=== PATIENT | female | born 2000 | race Caucasian/White ===

== ENCOUNTER 2023-02-09 03:33 | Emergency (ER) | payer BC, SELFPAY ==
[2023-02-09 03:40] VITALS: BP 148/99; PULSE 82; RESP 16; TEMP 37; O2SAT 99
--- NOTE | 2023-02-09 03:59 | ED.GENADULT ---
HPI - General Adult General Chief complaint: Nausea/Vomiting Stated complaint: Food Poising Time Seen by Provider: 02/09/23 03:54 History of Present Illness HPI narrative: pt began vomiting around midnight. thinks it may be from eating raw cookie dough. pt also reports headaches. pt also reports stomach cramps, lower abd, left an 22-year-old woman presenting to the emergency department with concern dehydration. Started to have some cramping abdominal pain about 4 hours prior to this interview followed closely by nausea and vomiting. Has vomited maybe 5 times. No hematemesis. She is worried she may be dehydrated. Still uncomfortable. No fever. No rashes. Worried she might have eaten some bad cookie dough though in later questioning sounds like this was 36 hours prior. No dysuria frequency urgency. Related Data Home Medications Medication Instructions Recorded Confirmed sertraline 100 mg tablet (Zoloft) 200 mg PO DAILY 02/09/23 02/09/23 Allergies Allergy/AdvReac Type Severity Reaction Status Date / Time No Known Drug Allergies Allergy Verified 02/09/23 03:40 Review of Systems Status of ROS: Reports: 6 or more systems reviewed and unremarkable except as noted in History and below Exam Narrative: Exam Narrative: Pleasant. Breathing easily. Easily conversant. Accompanied by supportive significant other. Skin is warm and dry and well-perfused. No rashes She has no edema. Lungs appear to be clear. Heart in a regular rate and rhythm. Oropharynx sounds little sticky. Winces in diffuse tenderness to palpation over her abdomen. No peritoneal signs. Normoactive bowel sounds. Const: Vital Signs, click to edit/add: Vital Signs - 24 hr 02/09/23 03:40 Temperature 98.6 F Pulse Rate [Left P ulse Oximeter] 82 Respiratory Rate 16 Blood Pressure [Ri ght Upper Arm] 148/99 H Pulse Oximetry 99 Oxygen Delivery Me thod Room Air Documenting provider has reviewed patient's vital signs: yes Course Vital Signs Vital signs: Initial Vital Signs Temperature 98.6 F 02/09/23 03:40 Temperature Source Temporal Artery Scan 02/09/23 03:40 Pulse Rate 82 02/09/23 03:40 Pulse Rhythm Regular 02/09/23 03:40 Respiratory Rate 16 02/09/23 03:40 Blood Pressure 148/99 H 02/09/23 03:40 Blood Pressure Mean 115 H 02/09/23 03:40 Blood Pressure Position Sitting 02/09/23 03:40 Pulse Oximetry 99 02/09/23 03:40 Oxygen Delivery Method Room Air 02/09/23 03:40 Vital Signs Temperature 98.6 F 02/09/23 03:40 Pulse Rate 82 02/09/23 03:40 Respiratory Rate 16 02/09/23 03:40 Blood Pressure 148/99 H 02/09/23 03:40 Pulse Oximetry 99 02/09/23 03:40 Oxygen Delivery Method Room Air 02/09/23 03:40 Temperature 98.6 F 02/09/23 03:40 Pulse Rate 80 02/09/23 05:09 Respiratory Rate 16 02/09/23 05:09 Blood Pressure 136/64 02/09/23 05:09 Pulse Oximetry 99 02/09/23 05:09 Oxygen Delivery Method Room Air 02/09/23 05:09 Medical Decision Making MDM Narrative Medical decision making narrative: Limited duration in generally healthy person with overall reassuring exam I do not think we need to do any lab evaluation pending improvement here with initial treatment in the emergency department. Appears to be a gastritis/gastroenteritis of unclear etiology at this time. IV fluids were established. Given normal saline, ketorolac, Zofran. On reassessment is overall improved and felt she could return home. See patient discharge plan Discharge Plan Discharge Clinical Impression: Gastritis, Abdominal pain Patient Disposition: Home w/ Parent or Adult Condition: Improved Additional Instructions: Focus on hydration. Slow advance of diet over the next 24-36 hours. Diluted juices, soup broths, rice, crackers, toast. Return for intractable vomiting or diarrhea, marked increase in persistent abdominal pain, associated fever. Zofran from [facility]. Prescriptions: No Action sertraline [Zoloft] 100 mg tablet 200 mg PO DAILY Follow Up/Referrals: Marifer Myers MD [Primary Care Provider] - Stand Alone Forms: [employer] Info Instructions
[2023-02-09] MEDS: ONDANSETRON 2 MG/ML inj 4 MG IVP (04:14)
[2023-02-09] MEDS: 0.9 % SODIUM CHLORIDE 1000 ml 1,000 ML IV (04:14)
[2023-02-09] MEDS: KETOROLAC 30 MG/ML inj IVP (04:14)
[2023-02-09 05:09] VITALS: BP 136/64; PULSE 80; RESP 16; O2SAT 99
== END 2023-02-09 05:11 | disposition home or self-care (01) ==
PROVIDERS: Emergency Provider Family Medicine; PCP Pediatrics
DX: K29.70 Gastritis, unspecified, without bleeding (principal); R10.9 Unspecified abdominal pain
CPT/HCPCS: 81001; 81025; 96374; 96375; 99284; J1885; J2405; J7030

== ENCOUNTER 2024-11-09 14:58 | Outpatient (CLI) | payer BC, SELFPAY ==
[2024-11-09] VITALS (11 sets, daily range): BP systolic 117–131; BP diastolic 60–83; PULSE 74–100; RESP 18; TEMP 36.9; O2SAT 98
[2024-11-09 15:40] LABS: Alanine Aminotransferase* 26 U/L (4-35); Aspartate Amino Transferase* 27 U/L (12-35); Creatinine* 0.6 mg/dL (0.5-1.5); Estimated Glomerular Filt Rate 129 ml/min; Hematocrit 35.5 % (33.0-51.0); Hemoglobin* 11.5 gm/dL (12.0-16.0); Mean Corpuscular HGB Conc 32 gm/dL (32-36); Mean Corpuscular Hemoglobin 27 pg (26-34); Mean Corpuscular Volume 84 fL (80-100); Platelet Count* 268 K/uL (140-440); Red Blood Count 4.23 m/uL (4.00-5.20); White Blood Count* 10.71 K/uL (4.50-11.00)
[2024-11-09 15:43] LABS: Slide Review Reflex No
[2024-11-09 15:59] LABS: Creatinine Urine 109.9 mg/dL; Protein Creatinine Ratio Urine 0.19 (0-0.19); Total Protein Urine 21 mg/dL
--- NOTE | 2024-11-09 18:36 | PC.OBNST ---
NST Note NST Note Start: 11/09/24 15:00 Freq: ONCE Status: Active Protocol: Document 11/09/24 15:00 ROBINSON (Rec: 11/09/24 18:36 ROBINSON [id number]) NST Note 2 Para (# of births) 0 EDC 11/20/24 Gestational Age In 38 Weeks & 3 Days Weeks & Days Patient Presented Other with Complaint(s) of Other Complaints Elevated BP in clinic 148/87 with 15 minute recheck of 136/72 Reactive Yes Appropriate for Yes Gestational Age RN Jagdish Martínez, RN Date 11/09/24 Reactive Yes Appropriate for Yes Gestational Age KARSTEN Baumann, RN Date 11/09/24 OB NST charge Yes Complete NST Note Yes via Write Note The provider's electronic signature indicates the NST is reactive/appropriate for gestational age. *Note to provider: If an addendum is required, open the patient's chart and click on the note under the Nurse/Allied Health tab.
== END 2024-11-09 18:15 | disposition home or self-care (01) ==
LOC: OB OUT 14:58 → OB 14:59
PROVIDERS: PCP Pediatrics; Visit Provider Family Medicine
DX: O26.893 Other specified pregnancy related conditions, third trimester (principal); R03.0 Elevated blood-pressure reading, without diagnosis of hypertension; Z3A.38 38 weeks gestation of pregnancy
CPT/HCPCS: 36415; 59025; 82565; 82570; 84156; 84450; 84460; 84520; 85027; G0463

== ENCOUNTER 2024-11-19 15:54 | Inpatient (IN) | payer BC, SELFPAY ==
[2024-11-19 16:15] VITALS: BMI 25.4
[2024-11-19] MEDS: miSOPROStoL 25 MCG/0.25 TABLET PO ×4 (16:45→23:47)
[2024-11-19 16:49] VITALS: BP 125/77; PULSE 89; PULSE 91; RESP 16; TEMP 36.9; O2SAT 98
[2024-11-19 17:25] LABS: Basophils Absolute Auto 0.04 K/uL (0.00-0.30); Basophils Percent Auto 0.4 % (0.0-3.0); Eosinophils Absolute Auto 0.08 K/uL (0.00-0.50); Eosinophils Percent Auto 0.8 % (0.0-7.0); Hematocrit 33.8 % (33.0-51.0); Immature Granulocytes Abs Auto 0.18 K/uL (0.00-0.30); Immature Granulocytes Pct Auto 1.7 %; Lymphocytes Percent Auto 19.4 % (20-44); Mean Corpuscular HGB Conc 33 gm/dL (32-36); Mean Corpuscular Hemoglobin 27 pg (26-34); Mean Corpuscular Volume 84 fL (80-100); Neutrophils Absolute Auto 7.21 K/uL (1.7-7.0); Neutrophils Percent Auto 68.7 % (42.0-72.0); Platelet Count* 246 K/uL (140-440); RDW Coefficient of Variation % 14.8 % (11.5-15.5); Red Blood Count 4.02 m/uL (4.00-5.20); White Blood Count* 10.49 K/uL (4.50-11.00)
[2024-11-19 17:39] LABS: Slide Review Reflex No
[2024-11-19 19:18] VITALS: BP 138/78; PULSE 80; RESP 16; TEMP 36.6
--- NOTE | 2024-11-19 20:38 | P.OBHP_ITS ---
OB - H&P: HPI Labor/Induction History of Present Illness Date Seen: 11/19/24 Chief Complaint: The patient is a 24 year old 2 para 0010 at 39+6 weeks gestation by LMP c/w 6 wk US, who presents for elective IOL. Chief complaint: Maternity : 2 Para: 0 Indications for induction: other (elective) Narrative: Zee Diallo is a 24 year old female 2 para 0010 at 39+6 weeks gestation by LMP c/w 6 wk US, who presents for elective IOL. has been uncomplicated. Patient has history of exercise induced asthma and adjustment d/o, neither of which has been problematic this . It was noted on admission that her [facility] chart notes a prior MRSA skin infection at age 14. Patient and mother recall the infection; she had lesions on her finger and back. They are unsure if she had any testing for MRSA subsequently. She has had no subsequent issues with pustular skin infections or other severe infections of any kind. [facility] chart does not show any cultures or other documentation to confirm this diagnosis. Patient is feeling well. Occasional contractions on admission. Now salome regularly on the monitor after 2 doses of cytotec. Reporting mild cramping. History of Present Dating criteria: based on LMP care: good care Ultrasounds: normal 1st trimester US and normal mid trimester US Abnormal ultrasound findings: 6 wk dating US IMPRESSION: 1. Single living intrauterine gestation at 6 weeks, 6 days based on ultrasound measurements. This compares to a clinical age based on LMP of 7 weeks and 3 days. 2. Small adjacent subchorionic bleed measuring 1.3 x 0.6 x 0.4 cm. 3. Small amount of pelvic free fluid. 4. 3.2 cm right ovarian cyst and adjacent collapsing small cyst. 20 wk survey FINDINGS: LMP: 02/14/2024 Gestational age by LMP: 20 weeks 0 days MELISSA by LMP: 11/20/2024 Gestational age by first ultrasound: 19 weeks 3 days MELISSA by first ultrasound: 11/24/2024 Gestational age by today's ultrasound: 19 weeks 6 days MELISSA by today's ultrasound: 11/21/2024 Heart Rate: 144 beats per minute SDP: 3.8 cm Cervix Length: 3 cm Estimated Weight: 310 grams Percentile: 31% Placenta: Fundal Position: Vertex. BIOMETRY BPD: 4.64 cm, 20 weeks 1 day, 51% HC: 17.04 cm, 19 weeks 5 days, 26% AC: 14.36 cm, 19 weeks 5 days, 34% FL: 3.15 cm, 19 weeks 6 days, 34% IMPRESSION: Measurements are consistent with dates. Good interval growth since the prior exam. Normal anatomy survey Labs Blood type: B (+) positive Rubella: immune RPR/VDLR: nonreactive GBS status: negative HBsAG: negative Narrative: Hep C neg GC chlam neg GCT 104 Review of Systems Status of ROS: Reports: 10 or more systems reviewed and unremarkable except as noted in History and below Meds Home Medications and Allergies Home Medications ?Medication ?Instructions ?Recorded ?Confirmed ?Type vit no.95-ferrous 1 tab PO DAILY 11/09/2407/15 History fumarate 28 mg-folic acid 800 mcg tablet () Allergies Allergy/AdvReac Type Severity Reaction Status Date / Time No Known Drug Allergies Allergy Verified 11/19/24 16:26 OB - H&P: Exam Physical Exam: Vital signs: Temp Pulse Resp BP Pulse Ox 97.8 F 80 16 138/78 98 11/19/24 19:18 11/19/24 19:18 11/19/24 19:18 11/19/24 19:18 11/19/24 16:49 Narrative: General appearance: Well-appearing adult female. Alert, oriented and sachi ropriate. Sitting up in hospital bed. HEENT: EOMI, no conjunctival injection or discharge. MMM. Neck: Supple. CV: RRR, no rubs, murmurs or extra heart sounds. Pulm: CTAB, no wheezes, rales or rhonchi. Abdomen: Gravid MSK: Moving all extremities. Ext: Warm and well-perfused. No LE edema. Skin: No rashes appreciated over exposed skin. Neuro: Grossly normal strength and sensation. No focal deficits. Psych: Normal affect. Detailed Labor and Delivery Exam: Dilation (cm): 1 Effacement (%): 50 Contraction frequency (min): 2 Fetus (Single): Station: -3 Amniotic Membrane Status: intact Heart Rate Baseline: 135 Monitor Accelerations: Present Monitor Decelerations: None Custodial Variability: Moderate (6-25) OB - Results Labs Labs: Short CBC 11/19/24 Range/Units 17:14 WBC 10.49 (4.50-11.00) K/uL Hgb 11.0 L (12.0-16.0) gm/dL Hct 33.8 (33.0-51.0) % Plt Count 246 (140-440) K/uL OB - Problem Based A/P Additional Plan (1) Term : Problem details: Elective IOL at 39+6 weeks. Status: Acute Plan - Oral cytotec per protocol for cervical ripening. Plan transition to IV pitocin pending labor progress - Given uncertain nature of MRSA history (no documented positive cultures in [facility] chart), and > 10 years ago with no clinical concerns, precautions not initiated - GBS negative - May have epidural upon request for pain management - status reassuring - Anticipate vaginal delivery
[2024-11-19 21:34] VITALS: BP 133/82; PULSE 80
[2024-11-19 23:45] VITALS: BP 124/75; PULSE 62; TEMP 36.8
[2024-11-20] VITALS (36 sets, daily range): BP systolic 109–147; BP diastolic 69–101; PULSE 64–115; RESP 16–18; TEMP 36.6–36.9; O2SAT 97–100
[2024-11-20] MEDS: hydrOXYzine pamoate 25 MG CAPSULE 100 MG PO (03:34)
[2024-11-20] MEDS: MORPHINE 10 MG/ML inj IM (03:37)
[2024-11-20] MEDS: OXYTOCIN 30 unit/500 ML in NS 30 UNIT/500 ML BAG 300 UNIT IVPB (05:30)
--- NOTE | 2024-11-20 06:13 | W.PM.OBVAGDE ---
OB Procedure Vag Delivery Mother Details Mother Details: The patient is a 24 year-old, 2, Para 0, admitted on 11/19/24 at 39+6 Days gestation for elective IOL. Cervix was 1.5/50/-3 on admission. She received po cytotec per protocol x 4 doses. At 0335 was checked and found to be 2 cm. Received morphine and vistaril for therapeutic rest. Subsequently contractions became more painful. She requested epidural, however was checked at 0501 and found to be 8/100/+1. At 0507 had progressed to complete. Began pushing involuntarily. Provider arrived ~0520. Delivered a vigorous male over an intact perineum at 0528. Infant was placed on the maternal chest. Cord was clamped and cut after 60 sec delay. APGARs 8 and 9. IM pit given. Placenta delivered spontaneously at 0534, complete and 3V. Second degree perineal laceration was repaired in the usual fashion. First degree right periurethral laceration was hemostatic and not repaired. QBL was 125 cc. Sponge and sharps counts were correct. Infant and mother are resting comfortably. Admission Date: 11/19/24 Additional Details Amniotic Membrane Status: SROM Amniotic Membrane Rupture Date: 11/20/24 Amniotic Membrane Rupture Time: 05:09 Amniotic Membrane Fluid Description: Clear Analgesia/Anesthesia Type: None Waterbirth: No Pitcoin: No Intrapartal Events: Labor Induction Induction Method: per misoprostol protocol Labor Onset: 03:35 Complete: 05:07 Heart: heart tones during second stage were category 2. Decelerations with pushing, returned to baseline between contractions. Delivery Details Delivery Date: 11/20/24 Delivery Time: 05:28 Route of delivery: Gender: Male Infant Viability: Alive; Heart Rate Present Position at Delivery: OA Delivery Details: Delivered via spontaneous vaginal delivery. was placed on maternal abdomen.? Cord was clamped and cut after a 30-60 second delay. Nose and mouth were bulb suctioned.? weight pending. 1 Minute Interval Total Score: 8 5 Minute Interval Total Score: 9 Additional Details Shoulder Dystocia: No Placenta Delivery Time: 05:34 Placental Delivery Description: Spontaneous Delivery repair: Vicryl Procedure Done: Global Blood Loss: 125 Laceration: Perineal - 2nd Degree Episiotomy Description: None Blood Loss Measurement Type: QBL Bakri Used: No Sponge/Need Count Correct: Yes Cord Vessel Description: 3 Vessels Event Summary Status: Mother and were stable after delivery. Disposition: floor
[2024-11-20 07:16] LABS: Hematocrit 32.7 % (33.0-51.0); Hemoglobin* 10.5 gm/dL (12.0-16.0); Mean Corpuscular HGB Conc 32 gm/dL (32-36); Mean Corpuscular Hemoglobin 27 pg (26-34); Mean Corpuscular Volume 85 fL (80-100); Platelet Count* 231 K/uL (140-440); Red Blood Count 3.87 m/uL (4.00-5.20); White Blood Count* 17.64 K/uL (4.50-11.00)
[2024-11-20] MEDS: LIDOCAINE 1 % PF 30 ML INJECTION (07:20)
[2024-11-20 07:22] LABS: Slide Review Reflex No
[2024-11-20] MEDS: IBUPROFEN 600 MG TABLET PO ×3 (07:25→21:10)
[2024-11-20] MEDS: DOCUSATE SODIUM 100 MG CAPSULE PO (07:26)
[2024-11-20 07:32] LABS: Alanine Aminotransferase* 34 U/L (4-35); Aspartate Amino Transferase* 37 U/L (12-35); Blood Urea Nitrogen* 12 mg/dL (5-24); Creatinine* 0.7 mg/dL (0.5-1.5); Est. Creatinine Clearance* 126.09; Estimated Glomerular Filt Rate 125 ml/min
[2024-11-20] MEDS: NIFEdipine ER 30 MG TAB PO (08:56)
[2024-11-20] MEDS: ACETAMINOPHEN 500 MG TABLET 1000 MG PO ×2 (11:24→17:53)
[2024-11-21] VITALS (7 sets, daily range): BP systolic 112–136; BP diastolic 75–84; PULSE 76–105; RESP 16–18; TEMP 36.4–36.9; O2SAT 92–98
[2024-11-21] MEDS: IBUPROFEN 600 MG TABLET PO ×2 (05:09→12:05)
[2024-11-21 06:23] LABS: Hemoglobin* 9.2 gm/dL (12.0-16.0)
--- NOTE | 2024-11-21 09:25 | PM.OBPNVD1 ---
OB - PN:Subj Subjective Time Seen by Provider: 09:15 Date Seen: 11/21/24 Interval history: pt seen in routine rounds. pt reports feeling well. Ambulating, voiding, tolerating orals. No headaches or vision changes. Lochia mild. No pain noted. Yesterday first 1-2 hours after delivery had several bp's in 140's/90's range. Nifedipine 30mg ER was started, first dose around 9am. BP's 112-133/75-85 since. Patient comments OB post-: no complaints status: [place] feeding status: exclusively OB - PN: Obj Exam Physical Exam: Vital signs: Temp Pulse Resp BP Pulse Ox O2 Del Method 98.5 F 84 18 127/81 98 Room Air 11/21/24 05:32 11/21/24 05:32 11/21/24 05:32 11/21/24 05:32 11/21/24 05:32 11/21/24 05:32 Constitutional: Constitutional: no acute distress and cooperative Routine HEENT Exam: Head: Present atraumatic, normal inspection and normocephalic Eye: Present normal appearance Routine Abdominal Exam: Fundus: Present firm (at umbilicus) OB - PN: Obj Data Labs Labs: Laboratory Results - last 24 hr 11/21/24 06:13 Hgb 9.2 L OB - PN: A/P Delivery Assessment and Plan (1) Term : Problem details: Elective IOL at 39+6 weeks. Uncomplicated 11/20/24 at 0528. Status: Acute (2) hypertension: Problem details: BP's 1-2 hours in 140's/90's, nifedipine 30mg ER started. Preeclamptic labs wnl except AST 37, recheck 11/21/34 pending. BP's <140/90 since. Status: Acute Assessment and Plan: Discussed htn with pt. Asymptomatic currently and BP's in goal range on 30mg ER nifedipine. Labs today pending to trend AST. Plan likely d/c tomorrow with home BP monitoring if continues to do well today. will be staying til tomorrow and will keep mom to monitor BP's/sxs as well during this time. (3) (normal spontaneous vaginal delivery): Status: Acute
[2024-11-21 09:40] LABS: Platelet Count* 201 K/uL (140-440)
[2024-11-21] MEDS: DOCUSATE SODIUM 100 MG CAPSULE PO (09:41)
[2024-11-21] MEDS: NIFEdipine ER 30 MG TAB PO (09:41)
[2024-11-21] MEDS: ACETAMINOPHEN 500 MG TABLET 1000 MG PO ×2 (09:47→16:31)
[2024-11-21 10:00] LABS: Alanine Aminotransferase* 25 U/L (4-35); Aspartate Amino Transferase* 40 U/L (12-35); Creatinine* 0.7 mg/dL (0.5-1.5); Est. Creatinine Clearance* 126.09; Estimated Glomerular Filt Rate 125 ml/min
[2024-11-21 13:21] LABS: Rapid Plasma Reagin (RPR) Non Reactive (Non Reactive)
[2024-11-22 03:59] VITALS: BP 120/79; PULSE 79; RESP 18; TEMP 36.8; O2SAT 97
[2024-11-22 06:28] LABS: Platelet Count* 224 K/uL (140-440)
[2024-11-22 06:46] LABS: Alanine Aminotransferase* 29 U/L (4-35); Aspartate Amino Transferase* 42 U/L (12-35); Creatinine* 0.7 mg/dL (0.5-1.5); Est. Creatinine Clearance* 126.09; Estimated Glomerular Filt Rate 125 ml/min
--- NOTE | 2024-11-22 06:50 | PM.OBDSVD1 ---
DS: Providers Provider Date Seen: 11/22/24 Date of admission: 11/19/24 15:54 Primary care physician: Marifer Myers MD Admitting Clinician: Jo Greer MD Attending Physician on discharge: Jo Greer MD DS: Diagnosis Discharge Diagnosis (1) hypertension: Status: Acute Problem details: BP's 1-2 hours in 140's/90's, d/c with nifedipine 30mg ER. Preeclamptic labs wnl except AST 37, recheck 11/21/34 pending. BP's <140/90 since. (2) (normal spontaneous vaginal delivery): Status: Acute Problem details: Elective IOL at 39+6 weeks. Uncomplicated delivererd at 40 weeks on 11/20/24 at 0528. . Exam Narrative: Exam Narrative: Gen: No acute distress CV: Regular rate and rhythm, normal S1,S2, no murmurs Resp: Normal rate and effort, clear to auscultation bilaterally Ext: Warm, dry,. Calves non-tender to palpation. Const: Vital Signs, click to edit/add: Vital Signs - 24 hr 11/21/24 08:00 11/21/24 11:56 11/21/24 16:40 Temperature 97.9 F 97.9 F 98.2 F Pulse Rate [Pulse Oximeter] 81 105 H 76 Respiratory Rate 18 16 18 Blood Pressure [Le ft Arm] 113/75 116/76 122/82 Pulse Oximetry 98 97 92 Oxygen Delivery Me thod Room Air Room Air Room Air 11/21/24 20:19 11/21/24 23:39 11/22/24 03:59 Temperature 98.2 F 98.2 F 98.3 F Pulse Rate [Pulse Oximeter] 83 95 79 Respiratory Rate 18 18 18 Blood Pressure [Le ft Arm] 136/84 118/76 120/79 Pulse Oximetry 97 96 97 Oxygen Delivery Me thod Room Air Room Air Room Air OB - DS: Summary Hospital Course Hospital Course: The patient is a 24 year old G 2 P 1 at 39w6d weeks gestation that was admitted to the Center on 11/19/24 for elective IOL. She had an uncomplicated vaginal delivery. She delivered a viable male infant. Apgars 8,9 She is breast feeding. BP's 1-2 hours in 140's/90's, started on nifedipine 30mg ER. Preeclamptic labs wnl except AST 37, recheck 11/21/34 was stable. BP's <140/90 since. [place] Infant Gender: Male Status at Discharge Functional status at discharge: independent ambulation Overall status at discharge: patient is progressing back to baseline Time Spent with Patient Time attestation: Total time spent providing and/or coordinating discharge services: Discharge Plan Discharge Disposition: Home, Self-Care Date of Admission: 11/19/24 15:54 Primary Care Provider: Marifer Myers Condition: Stable Anticipated Discharge Date/Time: 11/22/24 06:57 Discharge Medications: New nifedipine 30 mg Tablet Extended Release 30 mg PO DAILY 30 Days Qty: 30 0RF Continued PNV cmb#95-ferrous fumarate-FA [] 28 mg iron- 800 mcg tablet 1 tab PO DAILY Discharge Orders: Discharge Order (Routine); Ordered 11/22/24 Ordered By: Fang You Patient Education: OB High Blood Pressure DC, OB Vaginal/Breast Feeding Follow Up Appointments: Marifer Myers MD [Primary Care Provider, Pediatrics] Forms: [facility] Info Instructions
[2024-11-22 08:27] VITALS: BP 126/82; PULSE 89; RESP 18; TEMP 36.9; O2SAT 96
[2024-11-22] MEDS: NIFEdipine ER 30 MG TAB PO (08:37)
[2024-11-22] MEDS: IBUPROFEN 600 MG TABLET PO (08:37)
[2024-11-22] MEDS: DOCUSATE SODIUM 100 MG CAPSULE PO (08:37)
== END 2024-11-22 10:48 | disposition home or self-care (01) | DRG 560 ==
PROVIDERS: Family Medicine; Admitting Provider Family Medicine; PCP Pediatrics; Visit Provider Family Medicine
DX: O70.1 Second degree perineal laceration during delivery (principal); O71.82 Other specified trauma to perineum and vulva; Z3A.39 39 weeks gestation of pregnancy; Z37.0 Single live birth; O16.5 Unspecified maternal hypertension, complicating the puerperium; J45.990 Exercise induced bronchospasm; O34.83 Maternal care for other abnormalities of pelvic organs, third trimester; N83.201 Unspecified ovarian cyst, right side; O76 Abnormality in fetal heart rate and rhythm complicating labor and delivery
CPT/HCPCS: 36415; 59200; 82565; 82570; 84156; 84450; 84460; 84520; 85018; 85025; 85027; 85049; 86592; A9270; J2003; J2270